=== PATIENT | male | born 1955 | race Caucasian/White ===

== ENCOUNTER → 2023-08-08 10:42 | Outpatient (CLI) | payer OTHER, SELFPAY ==
--- NOTE | 2023-08-08 10:45 | DI.US.S_ITS ---
PROCEDURE: US ABD AORTA ANEURYSM SCREEN INDICATIONS: HISTORY SMOKING TECHNIQUE: Real time scanning was performed of the aorta and iliac arteries, with image documentation. COMPARISON: None. FINDINGS: Aorta: Proximal aortic diameter measures 2.1 cm. Mid-aorta measures 1.7 cm. Distal aortic diameter is 1.7 cm. Iliac arteries: Right common iliac artery measures 1.0 cm. Left common iliac artery measures 1.0 cm. IMPRESSION: No infrarenal aortic aneurysm. Dictated by: Florentin Jack M.D. on 08/08/2023 at 12:03 Approved by: Florentin Jack M.D. on 08/08/2023 at 12:04
== END ==
PROVIDERS: Family Provider Family Medicine; PCP Family Medicine; Referring Provider Family Medicine; Visit Provider Family Medicine
DX: Z87.891 Personal history of nicotine dependence (principal); Z13.6 Encounter for screening for cardiovascular disorders
CPT/HCPCS: 76706

== ENCOUNTER → 2024-02-13 07:48 | Outpatient (CLI) | payer OTHER, SELFPAY ==
--- NOTE | 2024-02-13 07:51 | DI.CT.S_ITS ---
PROCEDURE: CT LUNG LOW DOSE SCREENING INDICATIONS: TOBACCO USER TECHNIQUE: Noncontrast 2.0-2.5 mm thick sections acquired from the pulmonary apices to the posterior costophrenic angles. 7 mm thick axial MIP, and 5 mm coronal and sagittal reformats were then acquired. For radiation dose reduction, the following was used: automated exposure control, adjustment of mA and/or kV according to patient size. COMPARISON: None. FINDINGS: Image quality: Diagnostic. Lower Neck: No enlarged lymph nodes. Thyroid: No thyroid nodules which require sonographic follow up, per consensus guidelines. Axillae: No enlarged lymph nodes. Chest Wall: Unremarkable. Bones: Unremarkable. Lungs and Pleura: No pneumothorax or pleural effusions. There is focal consolidation at the right lung base in the basilar segments some of which has a nodular component which measures 2.2 x 1.6 cm (series 3 image number [id number]). This could represent nodular atelectasis but is nonspecific. There is a somewhat ill-defined ground-glass 8 mm nodule in the right lower lobe medially (series 3, image number 231). Heart: Heart size is normal. No pericardial effusion. Thoracic Vessels: The aorta and pulmonary arteries demonstrate normal size. Mediastinum and Leta: No enlarged lymph nodes. Esophagus: No wall thickening. No hiatal hernia. Upper Abdomen: Visualized upper abdomen solid organs and bowel loops appear normal. Note is made of a simple appearing partially imaged cyst in the right kidney measuring 5.8 cm in greatest diameter. IMPRESSION: Lung-RADS 4A: Suspicious; recommend 3-month followup CT, or PET-CT when there is a solid component of 8 mm or more. Dictated by: Francesco Durán M.D. on 02/13/2024 at 10:38 Approved by: Francesco Durán M.D. on 02/13/2024 at 10:47
== END ==
PROVIDERS: Family Provider Family Medicine; PCP Family Medicine; Referring Provider Family Medicine; Visit Provider Family Medicine
DX: Z12.2 Encounter for screening for malignant neoplasm of respiratory organs; N20.0 Calculus of kidney; Z87.891 Personal history of nicotine dependence; R91.1 Solitary pulmonary nodule
CPT/HCPCS: 71271